=== PATIENT | male | born 1960 | race Caucasian/White ===

== ENCOUNTER 2016-07-03 07:39 | Outpatient (CLI) | payer OTHER | END 2016-07-03 07:40 | disposition home or self-care (01) | DX: E66.01 Morbid (severe) obesity due to excess calories (principal) ==

== ENCOUNTER 2016-07-11 15:31 | Outpatient (CLI) | payer OTHER | END 2016-07-11 15:32 | disposition home or self-care (01) | DX: K76.0 Fatty (change of) liver, not elsewhere classified (principal); M25.562 Pain in left knee ==

== ENCOUNTER 2016-10-18 10:46 | Emergency (ER) | payer OTHER ==
[2016-10-18] MEDS ORDERED: HYDROmorphone 1 MG/ML SYRINGE IVP STA ×2 (10:53→14:00)
[2016-10-18] MEDS ORDERED: ONDANSETRON 4 MG/2 ML VIAL IVP STA (10:53)
[2016-10-18] MEDS ORDERED: ONDANSETRON 4 MG/2 ML VIAL ONE (10:54)
[2016-10-18] MEDS ORDERED: HYDROmorphone 1 MG/ML SYRINGE ONE ×2 (10:54→14:02)
--- NOTE | 2016-10-18 11:06 | ED Physician Documentation ---
PD HPI LOWER EXT INJURY - Stated complaint Stated Complaint: FOOT PX - Chief complaint Chief Complaint: Ext Problem - History obtained from History obtained from: Patient - History of Present Illness PD HPI LOW EXT INJURY LOCATION: Left, Ankle, Foot Type of injury: Crush Where injury occurred: Work Timing - onset: Today Timing - duration: Minutes Timing - details: Abrupt onset, Still present Improved by: Rest, Immobilization Worsened by: Moving, Palpating Associated symptoms: Numbness, Swelling Contributing factors: No: Anticoagulated Similar symptoms before: Has not had sx before Recently seen: Not recently seen - Additional information Additional information: 56 y/o male 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 He has deformity of the ankle with pain and swelling. Review of Systems Constitutional: denies: Fever Respiratory: denies: Cough GI: denies: Vomiting Skin: denies: Rash Musculoskeletal: reports: Extremity pain, Joint pain, Extremity swelling, Joint swelling. denies: Neck pain, Back pain Neurologic: reports: Numbness. denies: Generalized weakness, Focal weakness PD PAST MEDICAL HISTORY - Present Medications Home Medications: Ambulatory Orders Medication Instructions Recorded Confirmed Aspirin 81 mg PO DAILY 10/18/16 10/18/16 HYDROcod/ACETAM 5/325 [[place] 5/325] 1 - 2 ea PO Q6H PRN #15 tablet 10/18/16 - Allergies Allergies/Adverse Reactions: Allergies Allergy/AdvReac Type Severity Reaction Status Date / Time No Known Drug Allergies Allergy Verified 10/18/16 11:23 PD ED PE NORMAL - Vitals Vital signs reviewed: Yes (hypertensive) - General General: No acute distress, Well developed/nourished - HEENT HEENT: Atraumatic, PERRL - Neck Neck: Supple, no meningeal sign - Respiratory Respiratory: No respiratory distress - Derm Derm: Normal color, Warm and dry, No rash - Extremities Extremities: Other (The left ankle is deformed consistent with a fracture dislocation. There is lateral swelling and medial void space. ) - Neuro Neuro: No motor deficit, No sensory deficit - Psych Psych: Normal mood, Normal affect Results - Vitals Vitals: Vital Signs - 24 hr 10/18/16 10/18/16 10/18/16 10:50 12:00 13:48 Temperature 36.1 C L 36.1 C L Heart Rate 93 91 91 Respiratory 20 16 16 Rate Blood Pressure 160/91 H 144/63 H 144/63 H O2 Saturation 98 95 95 10/18/16 14:00 Temperature Heart Rate 82 Respiratory 18 Rate Blood Pressure 143/53 H O2 Saturation 96 Oxygen O2 Source Room air - Rads (name of study) Left ankle 3 view Radiology: Prelim report reviewed (Impression: Trimalleolar fracture with posterior lateral subluxation.), EMP read indepedently, See rad report Left foot Radiology: Prelim report reviewed (Impression: Ankle fracture, soft tissue swelling.), EMP read indepedently, See rad report Left tib-fib Radiology: Prelim report reviewed (Impression: Ankle fracture dislocation described separately; additional distal fibular shaft fracture with bayonet apposition.), EMP read indepedently, See rad report PD MEDICAL DECISION MAKING - ED course Complexity details: reviewed results, re-evaluated patient, considered differential, d/w patient ED course: 56 y/o male with an ankle fracture/dislocation from a blunt force trauma is given a hemtoma block the shi Do and his ankle is reduced and splinted. Departure - Departure Disposition: 01 Home, Self Care Clinical Impression: Trimalleolar fracture of left ankle Qualifiers: Encounter type: initial encounter Fracture type: closed Qualified Code(s): S82.852A - Displaced trimalleolar fracture of left lower leg, initial encounter for closed fracture Condition: Stable Instructions: ED Fx Ankle General Follow-Up: Marco Tubbs DO [Primary Care Provider] - [facility] [Provider Group] Prescriptions: HYDROcod/ACETAM 5/325 [[place] 5/325] 1 - 2 ea PO Q6H PRN #15 tablet PRN Reason: Pain Discharge Date/Time: 10/18/16 14:25
--- NOTE | 2016-10-18 11:45 | XRAY Preliminary Report ---
Exam: XR Tib/Fib LT IMPRESSION: Ankle fracture dislocation described separately; additional distal fibular shaft fracture with bayonet apposition. [facility] SITE ID: [id number]
--- NOTE | 2016-10-18 11:47 | XRAY Report ---
EXAM: LEFT TIBIA/FIBULA RADIOGRAPHY EXAM DATE: 10/18/2016 11:23 AM. CLINICAL HISTORY: Trauma, pain. COMPARISON: None. TECHNIQUE: 2 views. FINDINGS: Bones: Transverse fracture of medial malleolus and longitudinal fracture posterior malleolus describe d separately. Also a transverse fracture of distal fibular diaphysis with bayonet apposition, apex an terior angulation, and about 14 mm overriding of fracture fragments. More proximal structures appear intact. Joints: See separate report for ankle fracture dislocation findings. Unremarkable visualized knee. Soft Tissues: Soft tissue swelling. IMPRESSION: Ankle fracture dislocation described separately; additional distal fibular shaft fracture with bayonet apposition. [facility] Referring Provider Line: [phone] SITE ID: [id number]
--- NOTE | 2016-10-18 11:50 | XRAY Preliminary Report ---
Exam: XR Ankle 3 View LT IMPRESSION: Trimalleolar fracture with posterolateral subluxation [facility] SITE ID: [id number]
--- NOTE | 2016-10-18 11:51 | XRAY Preliminary Report ---
Exam: XR Foot 3 View LT IMPRESSION: Ankle fracture, soft tissue swelling. [facility] SITE ID: [id number]
--- NOTE | 2016-10-18 11:52 | XRAY Report ---
EXAM: LEFT ANKLE RADIOGRAPHY EXAM DATE: 10/18/2016 11:23 AM. CLINICAL HISTORY: Trauma, pain. COMPARISON: None. TECHNIQUE: 3 views. FINDINGS: Bones: Transverse fracture of medial malleolus with 10% apposition. Longitudinal fracture of posterio r malleolus with 40% apposition. Transverse fracture of distal fibular shaft with bayonet apposition. Small plantar and posterior calcaneal spurs. Joints: Posterior subluxation of talus impacted on posterior edge of distal tibia with lateral displa cement resulting in apex anterior and medial angulation and widening of the mortise at the level of t he medial plafond. Also, widening of the tibiofibular space indicating disruption of the distal tibio fibular ligament as well as disruption of the interosseous ligament from the level of fibular fractur e distally. Soft Tissues: Soft tissue swelling. IMPRESSION: Trimalleolar fracture with posterolateral subluxation [facility] Referring Provider Line: [phone] SITE ID: [id number]
--- NOTE | 2016-10-18 11:54 | XRAY Report ---
EXAM: LEFT FOOT RADIOGRAPHY EXAM DATE: 10/18/2016 11:23 AM. CLINICAL HISTORY: Trauma, pain. COMPARISON: None. TECHNIQUE: 3 views. FINDINGS: Bones: See separate report for description of ankle fractures. Small plantar and posterior calcaneal spurs. Unremarkable balance of foot. Joints: Normal. No subluxations. Soft Tissues: Soft tissue swelling and generalized heterogeneity. IMPRESSION: Ankle fracture, soft tissue swelling. [facility] Referring Provider Line: [phone] SITE ID: [id number]
[2016-10-18] MEDS ORDERED: LIDOCAINE 1% 2 ML VIAL ONE (12:11)
[2016-10-18] MEDS ORDERED: MIDAZOLAM 2 MG/2 ML VIAL IVP STA (12:45)
[2016-10-18] MEDS ORDERED: MIDAZOLAM 2 MG/2 ML VIAL ONE (12:45)
[2016-10-18] MEDS ORDERED: LIDOCAINE 1% 2 ML VIAL TD STA (13:14)
--- NOTE | 2016-10-18 13:24 | SURGERY HX AND PHYSICAL(T) ---
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 injury, NVI, sig swelling - PMH/PSH/Social Hx Neurological History: None Cardiovascular: None Respiratory: None Skin: None Is Patient ?: No Orthopedic: Rotator cuff repair, Shoulder arthroplasty Smoking Status: Never smoker Does the pt drink ETOH?: No Does the pt have substance abuse?: No - Family Hx Family Hx: Unremarkable - Home Meds and Allergies Home Medications: Aspirin 81 mg PO DAILY 10/18/16 Allergies/Adverse Reactions: Allergies Allergy/AdvReac Type Severity Reaction Status Date / Time No Known Drug Allergies Allergy Verified 10/18/16 11:23 - Review of Systems Constitutional: No: Fatigue, Fever, Chills, Weakness HEENT: No: Headaches, Visual changes Skin: Other (no bleeding or wound in region of trauma) Cardiac: No: Syncope Respiratory: No: Shortness of breath, Cough Gastrointestinal: No: Nausea, Vomiting Musculoskeletal: Joint pain or stiffness - Vital Signs Heart Rate: 91 Blood Pressure: 144/63 Temperature: 36.1 C Respiratory Rate: 16 O2 Saturation: 95 Weight (kg): 136.531 kg Height: 1.75 m - Patient Review Patient Review: Problems were reviewed with the patient during this visit. Medications were reviewed with the patient during this visit. Allergies were reviewed this patient during this visit. Pertinent Tests Reviewed: All pertitent test for this patient were reviewed. 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 The device was significantly heavy. He had immediate pain isolated to the left ankle, deformity, but no open wound. He had no pain prior to injury in this site. He was transported to [facility] for evaluation. Dr. Bonner in the ER attained imaging demonstrating a severe ankle fracture and consulted Ortho. The patient is currently comfortable , NVI, in no acute distress. Imagin views left ankle and 2 views left tib/fib demonstrate a severely displaced left trimalleolar ankle fracture consistent with a Umana C injury. There is increased clear space at the ankle concerning for associated syndesmotic ligament injury. PMH: Hx hyperlipidemia now resolved per report off medication Morbid obesity, BMI 44.4 Physical Exam: General: Alert and Oriented, NAD Head: normocephalic, atraumatic Cardiac: RRR, no murmur, rub, or gallop Lung: CTAB no wheezing LLE: Pain-free ROM hip and knee. Sensation intact to LT to sural/saphenous/DP/SP /TN distally, palpable DP pulse Singificant swelling and echymosis present at the ankle circumferentially, no blisters or wounds present. Significant crepitation with ROM ankle, non-tender hindfoot/midfoot/forefoot. A/P: 56 yo M with morbid obesity and a closed displaced trimalleolar ankle fracture with possible syndesmotic injury from trauma today. We discussed risks , benefits and alternatives to a hematoma block and reduction in the ER and he would like to undergo this procedure. Verbal consent attained Injected 15cc of 1% Lidocaine without epi into the left ankle via a medial approach through the fracture. Immediate analgesic improvement was attained. A closed reduction was then performed with improved alignment noted on fluoroscopy. He was placed in a Mckoy splint and remained neurovascularly intact. Plan: - pending post reduction images in ER - ice and elevate ankle with toes above nose x4 days. - pain medication per ER - NWB LLE until cleared by Ortho, ok crutches - Return to ER on Saturday10/22/2016 NPO at midnight before for skin check. If swelling improved will plan ORIF left ankle with possible syndesmotic fixation. If remains swollen will follow-up later in the week in Ortho clinic - Return to ER sooner if develop significant increase in pain, numbness, and tingling
--- NOTE | 2016-10-18 13:49 | XRAY Report ---
EXAM: LEFT ANKLE RADIOGRAPHY EXAM DATE: 10/18/2016 01:33 PM. CLINICAL HISTORY: Post reduction. COMPARISON: An earlier study of this same date. TECHNIQUE: 3 casted views. FINDINGS: Bones: Medial and posterior malleolar fractures in anatomic alignment. Distal fibular fracture with 5 % apposition. Joints: Previously described posterior lateral subluxation of the talus has been reduced. Minimal wid ening of the mortise medially. Continued slight widening of the tibiofibular space. Soft Tissues: Soft tissue swelling. IMPRESSION: Reduction of ankle fracture/subluxation. [facility] Referring Provider Line: [phone] SITE ID: [id number]
[2016-10-18 15:09] VITALS: BP 143/53
== END 2016-10-18 14:25 | disposition home or self-care (01) ==
LOC: EDUNIT# → ED 10:46
DX: S82.852A Displaced trimalleolar fracture of left lower leg, initial encounter for closed fracture (principal); W22.8XXA Striking against or struck by other objects, initial encounter; W31.89XA Contact with other specified machinery, initial encounter; Y93.01 Activity, walking, marching and hiking; Y99.0 Civilian activity done for income or pay
CPT/HCPCS: 27818; 73590; 73610; 73630; 96374; 96375; 96376; 99284; J1170

== ENCOUNTER 2016-10-22 09:53 | Day surgery (SDC) | payer OTHER ==
[2016-10-22] MEDS ORDERED: ACETAMINOPHEN 1,000 MG/100 ML 100 ML IV ONE (10:24)
[2016-10-22] MEDS ORDERED: ceFAZolin 2 GM/50 ML 50 ML IV ONE (10:24)
[2016-10-22] MEDS ORDERED: LACTATED RINGERS 1,000 ML IV ONE ×3 (10:27→10:41)
[2016-10-22 10:37] LABS: BASOPHILS # (AUTO) 0.1 10^3/uL (0.0-0.1); BASOPHILS % (AUTO) 1.4 %; EOSINOPHILS # (AUTO) 0.3 10^3/uL (0.0-0.7); EOSINOPHILS % (AUTO) 3.1 %; HCT - HEMATOCRIT 41.3 % (42.0-52.0); HGB - HEMOGLOBIN 14.4 g/dL (14.0-18.0); LYMPHOCYTES # (AUTO) 1.5 10^3/uL (1.5-3.5); LYMPHOCYTES % (AUTO) 18.5 %; MEAN CORPUSCULAR HEMOGLOBIN 30.5 pg (27.0-31.0); MEAN CORPUSCULAR HGB CONC 34.8 g/dL (32.0-36.0); MEAN CORPUSCULAR VOLUME 87.6 fL (80.0-94.0); MEAN PLATELET VOLUME 8.5 fL (7.4-11.4); MONOCYTES # (AUTO) 0.5 10^3/uL (0.0-1.0); MONOCYTES % (AUTO) 6.2 %; NEUTROPHILS # (AUTO) 5.8 10^3/uL (1.5-6.6); NEUTROPHILS % (AUTO) 70.8 %; RED BLOOD COUNT 4.72 10^6/uL (4.70-6.10); RED CELL DISTRIBUTION WIDTH 13.3 % (12.0-15.0); UNCORRECTED WHITE BLOOD COUNT 8.2 x10^3/uL; WHITE BLOOD COUNT 8.2 x10^3/uL (4.8-10.8)
[2016-10-22 10:46] LABS: CALCIUM 8.7 mg/dL (8.5-10.3); CREATININE 0.8 mg/dL (0.6-1.2); POTASSIUM 3.5 mmol/L (3.5-5.0)
[2016-10-22] MEDS ORDERED: LIDOCAINE 1%-EPI 1:100000 20 ML MDV SUBQ ONE ×2 (11:32→14:07)
--- NOTE | 2016-10-22 14:06 | XRAY Report ---
TWO-VIEW INTRAOPERATIVE LEFT ANKLE: 10/22/2016 CLINICAL INDICATION: Fracture fixation. FINDINGS: Intraoperative fluoroscopy was provided to Dr. Do. Intraoperative frontal and lateral matrix images of the left ankle demonstrate sideplate and screw fi xation of the fibular fracture, and cortical screw fixation of the medial and posterior malleolar fra ctures. Alignment appears near anatomic. A total of 59 seconds of fluoroscopy time was utilized; 6 spot images obtained. IMPRESSION: INTRAOPERATIVE IMAGING OF TRIMALLEOLAR FRACTURE FIXATION. DOCUMENTATION OF FLUOROSCOPY. JOB #: [id number] EXT JOB #:[id number]
[2016-10-22] MEDS: HYDROmorphone 1 MG/ML SYRINGE ONE ×2 (14:32→14:39)
--- NOTE | 2016-10-22 14:36 | POST OP PROGRESS NOTE ---
Subjective - General Procedure Date: 10/22/16 Post Op Days: 0 Procedure Performed: Left ankle ORIF trimalleolar fracture - Review of Systems Drain Type: none Surgery Impression Plan - FEN FEN: Operative Report Preop Diagnosis: Left closed trimalleolar ankle fracture Postop Diagnosis: same Procedure: Left ankle ORIF of lateral, medial, and posterior malleolar fractures Surgeon: Kyle Do MD Anesthesia: General EBL: 15 cc Specimen: none Complications: none Findings: the syndesmosis was stressed after medial and lateral fixation and was found to be stable. There was a 3mm diameter circular full thickness chondral injury to the medial talar dome. Indication: Patient had a work injury when a lift ran over his left ankle. He was evaluated in the ER, please see my consult note for full details. He was significantly swollen after his ER reduction and has iced an elevated since Saturday. His swelling was evaluated today in the preop area and he had a positive wrinkle sign. We discussed the risks benefits/alternatives to surgery and he elected to go forward with the surgical plan. Operative Procedure Patient was identified in the preop area and his operative site was marked with his agreement. He was transported in stable condition the the operative room. Once in the OR he received IV Abx. A time out was performed where the patients identity, operative site and operative procedure were discussed and all were in agreement. He then underwent general anesthesia and intubation without difficulty. His left lower extremity was then prepped and draped in normal fashion for approach to the ankle. A tourniquet was inflated to 250mmHg (total time 116 min). The lateral aspect of the fibula was approached directly, dissection was carried down through the skin and subcutaneous tissue. The superficial peroneal nerve was not encountered. The peroneal fascia was incised the the fracture was exposed. The fracture edges were debrided of soft tissue and the fracture was reduced with 2 reduction clamps. This was verified on AP and lateral fluoroscopy. An appropriately sized Pool and Nephew ankle plate was chosen and fixed proximal and distal to the fracture. This was verified on xray. The plat was then fixed proximally and distally with a locking screw used unicortically on the distal hole. Attention was then turned to the medial malleolus. The medial malleolus was approached with a direct medial incision through the skin and subcutaneous tissue. The fracture had dissected much of the subcutaneous tissue. The fracture was distracted and the talar cartilage was inspected. A 3 mm circular diameter full thickness chondral injury was present at the medial talar dome. The loose fragment of cartilage was removed with a rongure. The joint was irrigated with normal saline. The fracture edge was then sharply debrided and reduced with a dental pick. The fracture was then preliminarily fixed with 0.054 kwires x2 and the reduction was verified on fluoro to be in good position. The fracture was then fixed with 3.5 mm long solid screws with washers x2 in a bicoritical fashion. These were verified with imaged to be in good position and the kwires were removed. The ankle was then stress tested for the syndesmosis and found to be stable. The lateral image was inspected to view the position of the posterior malleolus. It was reduced but it was of sufficient size to fix. The decision was made to fix it with A to P screws in lag fashion with washers. An incision was made anteriorly and dissection was carried down the the level of bone. The tendons were protected. 3.5 mm screws with washers x2 were placed in lag fashion and verified on imaging to be in good position. The final imaging was attained and the fracture were well fixed. The wounds were then copiously irrigated with normal saline. The tourniquet was released and hemostasis was attained with electrocaudery. The medial and lateral wounds were closed with Algower/Denoti trauma style 3-0 nylon sutures. The anterior incision was closed with 3-0 nylon. Soft dressings were applied and a bulky ruffin splint. The patient was awoken from anesthesia in stable condition and transferred to the PACU Postop Plan - NWB LLE x 6 weeks, crutches and knee scooter - ice and elevate especially for first 4 days postop, toes above nose - regular diet - oxycodone 5mg PO q4 hrs disp 60# for pain, vistaril for spasms wean off both within 7 days no refills, coalce for consitpation - F/U in Ortho Clinic in 2 weeks for wound check suture removal, into a CAM boot for 4 weeks continued NWB. F/U then at 6 weeks postop with 3 views left ankle to advance WB status.
[2016-10-22] MEDS ORDERED: oxyCODONE 5 MG TABLET ONE (15:31)
[2016-10-22 16:15] VITALS: BP 170/72
--- NOTE | 2016-10-24 07:28 | XRAY Report ---
THREE VIEW LEFT ANKLE: 10/22/2016 CLINICAL INDICATION: Postop ORIF. COMPARISON: Previous films of 10/18/2016. FINDINGS: AP, lateral, and oblique views of the left ankle are obtained with splint material in plac e, obscuring fine detail. A trimalleolar fracture fixation is present, with side plate and screw fixa tion of the fibular fracture and cortical screw fixation of the medial and posterior malleolar fractu res. Alignment appears near anatomic. IMPRESSION: POSTOPERATIVE CHANGES OF TRIMALLEOLAR FRACTURE ORIF. :9 JOB #: [id number] EXT JOB #:[id number]
--- NOTE | 2016-11-08 14:30 | XRAY Report ---
[facility]: Fluoroscopy time only, no images submitted for interpretation. Fluoroscopy time 0 minutes, 59 seconds. DAVIDD
== END 2016-10-22 09:54 | disposition home or self-care (01) ==
LOC: SDS 09:53
PROVIDERS: ATTEND Orthopaedic Surgery
PROC: 0QSH04Z Reposition Left Tibia with Internal Fixation Device, Open Approach (ICD-10-PCS; 2016-10-22)
PROC: 0QSH04Z Reposition Left Tibia with Internal Fixation Device, Open Approach (ICD-10-PCS; 2016-10-22)
PROC: 0QSK04Z Reposition Left Fibula with Internal Fixation Device, Open Approach (ICD-10-PCS; principal; 2016-10-22 12:00)
DX: S82.852A Displaced trimalleolar fracture of left lower leg, initial encounter for closed fracture (principal); W22.8XXA Striking against or struck by other objects, initial encounter; E66.01 Morbid (severe) obesity due to excess calories; Z68.41 Body mass index [BMI] 40.0-44.9, adult; Z79.82 Long term (current) use of aspirin
CPT/HCPCS: 27823; 73600; 73610; 80048; 85025; 85610; 85730; 93005; A9270; C1713; J0131; J0690; J1170; J7120

== ENCOUNTER 2018-03-24 07:45 | Outpatient (CLI) | payer OTHER ==
[2018-03-24 15:00] LABS: ALBUMIN 3.8 g/dL (3.2-5.5); ALBUMIN/GLOBULIN RATIO 1.2 (1.0-2.2); ALKALINE PHOSPHATASE 76 IU/L (42-121); ALT ALANINE AMINOTRANSFERASE 131 IU/L (10-60); AST ASPARTATE AMINOTRANSFERASE 83 IU/L (10-42); BILIRUBIN,TOTAL 1.2 mg/dL (0.2-1.0); BUN - BLOOD UREA NITROGEN 8 mg/dL (6-20); CALCIUM 8.6 mg/dL (8.5-10.3); CARBON DIOXIDE - CO2 28 mmol/L (21-32); CHLORIDE 100 mmol/L (101-111); CHOLESTEROL 191 mg/dL; CREATININE 0.7 mg/dL (0.6-1.2); GFR - MDRD 117 (>89); GLUCOSE 165 mg/dL (70-100); HDL CHOLESTEROL 32 mg/dL; LDL CHOLESTEROL,CALCULATED 133 mg/dL; LDL/HDL RATIO 4.2 (<3.6); SODIUM 135 mmol/L (135-145); VLDL CHOLESTEROL 26 mg/dL
[2018-03-24 15:17] LABS: BASOPHILS % (AUTO) 0.7 %; EOSINOPHILS # (AUTO) 0.2 10^3/uL (0.0-0.7); EOSINOPHILS % (AUTO) 3.7 %; HGB - HEMOGLOBIN 14.6 g/dL (14.0-18.0); LYMPHOCYTES # (AUTO) 1.7 10^3/uL (1.5-3.5); LYMPHOCYTES % (AUTO) 28.1 %; MEAN CORPUSCULAR HEMOGLOBIN 30.9 pg (27.0-31.0); MEAN CORPUSCULAR HGB CONC 34.8 g/dL (32.0-36.0); MEAN CORPUSCULAR VOLUME 88.6 fL (80.0-94.0); MONOCYTES # (AUTO) 0.4 10^3/uL (0.0-1.0); MONOCYTES % (AUTO) 6.6 %; NEUTROPHILS # (AUTO) 3.6 10^3/uL (1.5-6.6); NEUTROPHILS % (AUTO) 60.9 %; PLT - PLATELET COUNT 199 10^3/uL (130-450); RED BLOOD COUNT 4.73 10^6/uL (4.70-6.10); RED CELL DISTRIBUTION WIDTH 13.2 % (12.0-15.0)
[2018-03-24 15:53] LABS: HEMOGLOBIN A1C 0.78 g/dL; HEMOGLOBIN A1C % 6.6 % (4.6-6.2)
== END 2018-03-24 23:59 | disposition home or self-care (01) ==
LOC: LAB.WCP 07:45
PROVIDERS: ATTEND Family Medicine
DX: R03.0 Elevated blood-pressure reading, without diagnosis of hypertension (principal); E78.5 Hyperlipidemia, unspecified; R73.01 Impaired fasting glucose; Z12.5 Encounter for screening for malignant neoplasm of prostate; N41.9 Inflammatory disease of prostate, unspecified
CPT/HCPCS: 36415; 80053; 80061; 83036; 83721; 84153; 85025; 87086

== ENCOUNTER 2018-04-02 07:41 | Outpatient (CLI) | payer OTHER ==
[2018-04-03 12:18] LABS: HEPATITIS A IGM NON-REACTIVE (NON-REACTIVE); HEPATITIS B CORE ANTIBODY IGM NON-REACTIVE (NON-REACTIVE); HEPATITIS B SURFACE ANTIGEN NON-REACTIVE (NON-REACTIVE); HEPATITIS C ANTIBODY NON-REACTIVE (NON-REACTIVE)
== END 2018-04-02 23:59 | disposition home or self-care (01) ==
LOC: LAB.WCP 07:41
PROVIDERS: ATTEND Family Medicine
DX: R94.5 Abnormal results of liver function studies (principal)
CPT/HCPCS: 36415; 80074